=== PATIENT | female | born 1970 | race Caucasian/White ===

== ENCOUNTER 2021-09-30 22:29 | Emergency (ER) | payer BC ==
[2021-09-30 23:06] LABS: Hemoglobin 8.6 g/dL (12.0-16.0); Mean Corpuscular HGB CONC 33.7 g/dL (32.0-36.0); Mean Corpuscular Hemoglobin 35.4 pg (27.0-31.0); Mean Platelet Volume 6.6 fL (7.4-10.4); Platelet Count 202 thou/uL (130-400); RBC Distribution Width 10.9 % (11.5-14.5); Red Blood Cell (RBC) Count 2.43 mill/uL (4.20-5.40); White Blood Cell (WBC) Count 5.5 thou/uL (4.8-10.8)
[2021-09-30 23:25] LABS: ALT (SGPT) 11 U/L (8-55); AST (SGOT) 16 U/L (5-34); Acetaminophen Less than 10.0 mcg/mL (10.0-30.0); Albumin 4.3 g/dL (3.5-5.0); Alcohol 174 mg/dL (Less than 10); Alkaline Phosphatase 68 U/L (40-110); Anion Gap 17 mmol/L (10-20); BUN (Urea Nitrogen) 52 mg/dL (9.8-20.1); Bilirubin, Total 0.3 mg/dL (0.2-1.2); Calc. Creatinine Clearance 0 mL/min (70-130); Calcium 9.8 mg/dL (7.8-10.44); Carbon Dioxide 21 mmol/L (22-29); Chloride 102 mmol/L (98-107); Estimated GFR 15; Globulin 2.8 g/dL (2.4-3.5); Glucose 96 mg/dL (70-105); Potassium 3.9 mmol/L (3.5-5.1); Protein, Total 7.1 g/dL (6.0-8.3); Salicylate Less than 8.0 mg/dL (15.0-30.0); Sodium 136 mmol/L (136-145)
[2021-09-30 23:34] LABS: #Eosinphils 0.1 thou/uL (0.0-0.7); #Lymphocytes 0.9 thou/uL (1.20-3.40); #Monocytes 0.6 thou/uL (0.11-0.59); #Neutrophils 3.9 thou/uL (1.40-6.50); %Basophils 0.7 % (0.0-1.0); %Eosinophils 1.1 % (0.0-10.0); %Lymphocytes 16.3 % (21.0-51.0); MDiff Complete? YES; Macrocytosis MODERATE=16-30 cells (100X) (0-5/hpf); Ovalocytes SLIGHT = 2-5 cells (100X) (0-1/hpf); Platelet Morphology Comment Appears Adequate
[2021-09-30 23:53] LABS: Bilirubin Negative (Negative); Blood, Urine Trace (Negative); Clarity Clear (Clear); Glucose, Urine (Dipstick) Normal (Negative); Ketone, Urine Negative (Negative); Leukocyte 25 Leu/uL (Negative); Nitrite Negative (Negative); Protein, Urine (Dipstick) Negative (Neg-Trace); RBC/HPF 0-3 HPF (0-3); Specific Gravity, Urine 1.004 (1.002-1.036); Urobilinogen Normal mg/dL (Less than 2); WBC/HPF 0-3 HPF (0-3)
[2021-09-30 23:54] LABS: Bacteria/HPF 1+ HPF (None Seen)
[2021-10-01] LABS: Amphetamine Not Detected (NotDetected); Barbiturates Screen Not Detected (NotDetected); Benzodiazepine Screen Not Detected (NotDetected); Cocaine Metabolite Screen Not Detected (NotDetected); Methadone Not Detected (NotDetected); Methamphetamine Not Detected (NotDetected); Opiate Screen Not Detected (NotDetected); Oxycodone Screen Not Detected (NotDetected); Phencyclidine (PCP) Not Detected (NotDetected); THC/Cannabinoid Screen Not Detected (NotDetected); Tricyclic Screen Not Detected (NotDetected)
[2021-10-01] MEDS ORDERED: levETIRAcetam 500 MG TAB PO SCH ×2 (00:15→12:30)
[2021-10-01 05:53] LABS: Acetaminophen Less than 10.0 mcg/mL (10.0-30.0); Alcohol 24 mg/dL (Less than 10); Salicylate Less than 8.0 mg/dL (15.0-30.0)
[2021-10-01] MEDS ORDERED: Ondansetron ODT 4 MG TAB ONE (09:27)
[2021-10-01] MEDS ORDERED: Ondansetron ODT 4 MG TAB PO SCH (12:30)
== END 2021-10-01 14:25 | disposition home or self-care (01) ==
LOC: ERS 22:29
DX: R45.851 Suicidal ideations (principal); N18.9 Chronic kidney disease, unspecified; D63.1 Anemia in chronic kidney disease
CPT/HCPCS: 36415; 80053; 80306; 80307; 81003; 81015; 85025; 93005; Q0162

== ENCOUNTER 2021-10-23 13:39 | Outpatient (CLI) | payer MEDICARE, BC ==
[~2021-10-23 13:39] MED LIST: Magnevist 469MG/ML 20 ML VIAL ONE
== END 2021-10-23 13:40 | disposition home or self-care (01) ==
LOC: TBSIIMAG 13:39
PROVIDERS: ATTEND Neurological Surgery
DX: C71.9 Malignant neoplasm of brain, unspecified (principal); D32.0 Benign neoplasm of cerebral meninges; Z98.890 Other specified postprocedural states
CPT/HCPCS: 70553; A9579